=== PATIENT | male | born 1965 | race Caucasian/White ===

== ENCOUNTER 2017-08-23 08:10 | Inpatient (IN) | payer MEDICAID ==
[~2017-08-23] VITALS: Ht 162.6 cm; Wt 74.8 kg
[2017-08-23] MEDS ORDERED: SODIUM CHLORIDE 0.9% 1000ML BAG (SEPSIS BOLUS) IV ONE (10:30)
[2017-08-23 11:00] LABS: HEMATOCRIT. 29.2 % (42.0-52.0); MEAN CORPUSCULAR HEMOGLOBIN 21.8 pg (28.0-32.0); MEAN PLATELET VOLUME 8.6 fl (7.4-10.4); PLATELET 161 x1000/uL (130-400); RED BLOOD CELL COUNT 4.11 mill/uL (4.7-6.1); RED CELL DISTRIBUTION WIDTH 20.5 % (11.6-14.6)
[2017-08-23 11:08] LABS: CHLORIDE 89 mEq/L (98-107)
[2017-08-23] MEDS ORDERED: VANCOMYCIN 1 G PREMIX 200 ML IV SCH (11:30)
[2017-08-23 11:32] LABS: PLATELET ESTIMATE NORMAL
[2017-08-23] MEDS ORDERED: HYDROCODONE/ACETAMINOPHEN 5/325MG TABLET PO PRN (14:00)
[2017-08-23] MEDS ORDERED: CLONIDINE 0.1MG TABLET PO PRN (14:00)
[2017-08-23] MEDS ORDERED: ONDANSETRON HCL 4MG/2ML VIAL IV PRN (14:00)
[2017-08-23] MEDS ORDERED: CEFTRIAXONE 1 G PREMIX 50 ML IV SCH ×2 (14:00→20:00)
[2017-08-23] MEDS ORDERED: MORPHINE SULFATE 4 MG/ML CPJ (NOT FOR IM USE) IV PRN (14:00)
[2017-08-23] MEDS ORDERED: ACETAMINOPHEN 650MG/20.3ML UDC GT PRN (14:00)
[2017-08-23] MEDS ORDERED: MAGNESIUM/ALUMINUM HYDROXIDE/SIMETHICONE 30ML UDC PO PRN (14:00)
[2017-08-23] MEDS ORDERED: NA PHOS,M-B/NA PHOS,DI-BA ENEMA 118ML PR PRN (14:00)
[2017-08-23] MEDS ORDERED: DOCUSATE SODIUM 100MG CAPSULE PO PRN (14:00)
[2017-08-23] MEDS ORDERED: DIPHENHYDRAMINE 50MG/ML VIAL IV PRN (14:00)
[2017-08-23] MEDS ORDERED: ACETAMINOPHEN 650MG SUPP PR PRN (14:00)
[2017-08-23] MEDS ORDERED: IPRATROPIUM/ALBUTEROL 0.5-3(2.5)MG/3ML NEB INH PRN (14:00)
[2017-08-23 14:55] LABS: TOTAL IRON BINDING CAPACITY 329 ug/dL (250-450)
[2017-08-23 19:54] LABS: CLARITY URINE CLOUDY (CLEAR); COLOR URINE YELLOW (YELLOW); KETONES URINE 1+ (NEGATIVE); LEUKOCYTE ESTERASE URINE NEGATIVE (NEGATIVE); NITRITE URINE NEGATIVE (NEGATIVE); OCCULT BLOOD URINE 3+ (NEGATIVE); PROTEIN URINE 2+ (NEGATIVE); SPECIFIC GRAVITY URINE 1.019 (1.005-1.030); UROBILINOGEN URINE 0.2 E.U./dL (0.2-1.0)
[2017-08-23 20:00] VITALS: BP 141/61
[2017-08-23 20:44] LABS: *AMPHETAMINES SCREEN URINE NEGATIVE (NEGATIVE); *BARBITURATES SCREEN URINE NEGATIVE (NEGATIVE); *BENZODIAZEPINES SCREEN URINE NEGATIVE (NEGATIVE); *COCAINE SCREEN URINE NEGATIVE (NEGATIVE); METHADONE URINE SCREEN NEGATIVE (NEGATIVE)
[2017-08-23 20:45] LABS: CANNABINOID URINE SCREEN NEGATIVE (NEGATIVE); OPIATES URINE SCREEN NEGATIVE (NEGATIVE); PHENCYCLIDINE URINE SCREEN NEGATIVE (NEGATIVE)
[2017-08-24] VITALS: BP 127/80
[2017-08-24] MEDS: VANCOMYCIN 1 G PREMIX 200 ML IV SCH ×2 (00:31→18:48)
[2017-08-24] MEDS: DEXAMETHASONE 4MG/ML 1ML VIAL IV SCH ×2 (00:31→06:57)
[2017-08-24] MEDS: SODIUM CHLORIDE 0.9% 1,000 ML IV SCH ×2 (00:31→08:35)
[2017-08-24] MEDS: SODIUM CHLORIDE 0.9% INJ 3ML FLUSH IVF SCH ×3 (00:32→14:00)
[2017-08-24] MEDS: NEOMYCIN-POLYMYXIN-HYDROCORTISONE 1% OTIC SUSP 10ML RIGHT EAR SCH ×3 (00:32→18:48)
[2017-08-24] MEDS: ENOXAPARIN 40MG/0.4ML SYR SUBCUT SCH (00:33)
[2017-08-24 04:00] VITALS: BP 105/69
[2017-08-24] MEDS ORDERED: THIAMINE HCL 100MG TABLET PO NR (07:45)
[2017-08-24 07:48] LABS: HEMATOCRIT. 29.5 % (42.0-52.0); MEAN CORPUSCULAR HEMOGLOBIN 22.1 pg (28.0-32.0); MEAN CORPUSCULAR VOLUME 72.7 fL (80.0-94.0); MEAN PLATELET VOLUME 8.4 fl (7.4-10.4); PLATELET 183 x1000/uL (130-400); RED BLOOD CELL COUNT 4.06 mill/uL (4.7-6.1); RED CELL DISTRIBUTION WIDTH 20.9 % (11.6-14.6)
[2017-08-24 07:49] LABS: CHLORIDE 94 mEq/L (98-107)
[2017-08-24 08:00] VITALS: BP 129/61
[2017-08-24] MEDS ORDERED: LORAZEPAM 2MG/ML CPJ IV PRN (08:00)
[2017-08-24 08:12] LABS: LDL CHOLESTEROL 46 mg/dL (5-100)
[2017-08-24 08:14] LABS: HDL CHOLESTEROL 57 mg/dL (40-59)
[2017-08-24 08:38] LABS: BG BASE EXCESS -12.4 mmol/L (-2.0-2.0); BG DEOXYHEMOGLOBIN 2.4 % (0.0-5.0); BG METHEMOGLOBIN 0.3 % (0.0-1.5); BG OXYGEN SATURATION 97.6 % (92.0-98.5); BG OXYHEMOGLOBIN 97.3 % (94.0-97.0); BG PH 7.334 (7.350-7.450); BG PO2 102.4 mmHg (75.0-100.0); BG SAMPLE SITE RIGHT RADIAL; BG TOTAL HEMOGLOBIN 9.2 g/dL (12.0-18.0); BG VENT MODE ROOM AIR
[2017-08-24] MEDS: FOLIC ACID 1MG TABLET PO SCH (08:41)
[2017-08-24] MEDS ORDERED: POTASSIUM CHLORIDE 20MEQ TABLET SR PO NR ×2 (09:15→13:00)
[2017-08-24 10:38] LABS: PHOSPHORUS 2.4 mg/dL (2.5-4.9)
[2017-08-24 10:42] LABS: BETA HYDROXYBUTYRATE 2.5 mMol/L (0.0-0.3)
[2017-08-24] MEDS ORDERED: THIAMINE HCL 100 MG in SODIUM CHLORIDE 0.9% 49 ML IV NR (11:00)
[2017-08-24] MEDS: POTASSIUM CHLORIDE INJ 40 MEQ in SODIUM CHLORIDE 0.9% 1,000 ML IV SCH (11:00)
[2017-08-24 12:00] VITALS: BP 128/57
[2017-08-24 16:00] VITALS: BP 111/57
[2017-08-24] MEDS ORDERED: POTASSIUM PHOS,M-BASIC-D-BASIC 15 MMOL in SODIUM CHLORIDE 0.9% 250 ML IV SCH (16:00)
[2017-08-24 16:08] LABS: T4 FREE 1.28 ng/dL (0.76-1.46)
[2017-08-24 17:05] LABS: PLATELET ESTIMATE NORMAL
[2017-08-24] MEDS: LORAZEPAM 2MG/ML CPJ IV PRN (17:38)
[2017-08-24] MEDS ORDERED: PIPERACILLIN/TAZOBACTAM 3.375 G in DEXT 5% WATER 100 ML IV SCH (18:00)
[2017-08-24 20:00] VITALS: BP 100/57
[2017-08-25] VITALS: BP_SYST 103; BP_SYST 110; BP_DIAS 48; BP_DIAS 61
[2017-08-25] MEDS: NEOMYCIN-POLYMYXIN-HYDROCORTISONE 1% OTIC SUSP 10ML RIGHT EAR SCH ×4 (00:20→21:58)
[2017-08-25] MEDS: SODIUM CHLORIDE 0.9% INJ 3ML FLUSH IVF SCH ×4 (00:21→22:07)
[2017-08-25] MEDS: ENOXAPARIN 40MG/0.4ML SYR SUBCUT SCH ×2 (00:21→21:59)
[2017-08-25] MEDS: POTASSIUM CHLORIDE INJ 40 MEQ in SODIUM CHLORIDE 0.9% 1,000 ML IV SCH ×2 (00:21→22:07)
[2017-08-25] MEDS: PIPERACILLIN/TAZ 3.375G PREMIX 50 ML IV SCH ×5 (00:21→21:58)
[2017-08-25] MEDS ORDERED: POTASSIUM PHOS,M-BASIC-D-BASIC 15 MMOL in SODIUM CHLORIDE 0.9% 250 ML IV SCH (05:00)
[2017-08-25] MEDS: VANCOMYCIN 1 G PREMIX 200 ML IV SCH (09:01)
[2017-08-25 09:29] LABS: HEMATOCRIT. 25.5 % (42.0-52.0); HEMOGLOBIN. 7.9 g/dL (14.0-18.0); MEAN CORPUSCULAR HEMOGLOBIN 22.1 pg (28.0-32.0); MEAN CORPUSCULAR VOLUME 71.5 fL (80.0-94.0); PLATELET 243 x1000/uL (130-400); RED BLOOD CELL COUNT 3.57 mill/uL (4.7-6.1); RED CELL DISTRIBUTION WIDTH 20.9 % (11.6-14.6)
[2017-08-25 09:51] LABS: CHLORIDE 104 mEq/L (98-107)
[2017-08-25 10:00] LABS: PHOSPHORUS 3.6 mg/dL (2.5-4.9)
[2017-08-25 10:39] LABS: NUCLEATED RED BLOOD CELLS 2 /100 WBC
[2017-08-25 10:40] LABS: PLATELET ESTIMATE NORMAL
[2017-08-25 12:32] VITALS: BP 127/73
[2017-08-25] MEDS: FOLIC ACID 1MG TABLET PO SCH (14:06)
[2017-08-25] MEDS: POTASSIUM CHLORIDE 20MEQ TABLET SR PO SCH (14:07)
[2017-08-25] MEDS: THIAMINE HCL 100MG TABLET PO SCH (14:08)
[2017-08-25] MEDS: LORAZEPAM 2MG/ML CPJ IV PRN ×2 (14:14→21:58)
[2017-08-25] MEDS ORDERED: COSYNTROPIN 0.25MG/ML VIAL IV ONE (14:45)
[2017-08-25] MEDS ORDERED: POTASSIUM CHLORIDE 20MEQ/PACKET PO NR (15:00)
[2017-08-25 16:00] VITALS: BP 131/62
[2017-08-25 16:27] LABS: HEMATOCRIT. 25.5 % (42.0-52.0); HEMOGLOBIN. 7.8 g/dL (14.0-18.0); MEAN CORPUSCULAR HEMOGLOBIN 22.2 pg (28.0-32.0); MEAN CORPUSCULAR VOLUME 72.7 fL (80.0-94.0); MEAN PLATELET VOLUME 8.2 fl (7.4-10.4); PLATELET 261 x1000/uL (130-400); RED BLOOD CELL COUNT 3.51 mill/uL (4.7-6.1); RED CELL DISTRIBUTION WIDTH 20.8 % (11.6-14.6)
[2017-08-25] MEDS ORDERED: FAMOTIDINE 20MG TABLET PO SCH (17:00)
[2017-08-25 17:18] LABS: TOTAL IRON BINDING CAPACITY 224 ug/dL (250-450)
[2017-08-25 20:00] VITALS: BP 145/62
[2017-08-25 21:48] LABS: PLATELET ESTIMATE NORMAL
[2017-08-26] VITALS: BP 126/62
[2017-08-26] MEDS: NEOMYCIN-POLYMYXIN-HYDROCORTISONE 1% OTIC SUSP 10ML RIGHT EAR SCH ×4 (01:50→18:08)
[2017-08-26] MEDS: PIPERACILLIN/TAZ 3.375G PREMIX 50 ML IV SCH ×4 (01:51→21:15)
[2017-08-26 04:00] VITALS: BP 137/69
[2017-08-26] MEDS ORDERED: COSYNTROPIN 0.25MG/ML VIAL IV NR (05:15)
[2017-08-26] MEDS: LORAZEPAM 2MG/ML CPJ IV PRN ×2 (05:33→14:09)
[2017-08-26] MEDS: VANCOMYCIN 1 G PREMIX 200 ML IV SCH ×2 (05:36→21:15)
[2017-08-26 06:42] LABS: HEMATOCRIT. 24.9 % (42.0-52.0); HEMOGLOBIN. 7.6 g/dL (14.0-18.0); MEAN CORPUSCULAR HEMOGLOBIN 22.5 pg (28.0-32.0); MEAN CORPUSCULAR VOLUME 73.6 fL (80.0-94.0); MEAN PLATELET VOLUME 8.1 fl (7.4-10.4); PLATELET 303 x1000/uL (130-400); RED BLOOD CELL COUNT 3.39 mill/uL (4.7-6.1); RED CELL DISTRIBUTION WIDTH 20.3 % (11.6-14.6)
[2017-08-26] MEDS: SODIUM CHLORIDE 0.9% INJ 3ML FLUSH IVF SCH ×2 (06:49→13:26)
[2017-08-26 06:53] LABS: CHLORIDE 107 mEq/L (98-107)
[2017-08-26 07:17] LABS: PHOSPHORUS 0.9 mg/dL (2.5-4.9)
[2017-08-26 08:00] VITALS: BP 110/59
[2017-08-26] MEDS ORDERED: DEXT 5% IV NR (08:00)
[2017-08-26] MEDS ORDERED: WATER IV NR (08:00)
[2017-08-26] MEDS ORDERED: COSYNTROPIN IV NR (08:00)
[2017-08-26] MEDS: THIAMINE HCL 100MG TABLET PO SCH (09:03)
[2017-08-26] MEDS: FOLIC ACID 1MG TABLET PO SCH (09:03)
[2017-08-26] MEDS ORDERED: SODIUM PHOS,M-BASIC-D-BASIC 20 MM in DEXT 5% WATER 243.3333 ML IV NR (09:30)
[2017-08-26 12:00] VITALS: BP 128/72
[2017-08-26 14:03] LABS: PLATELET ESTIMATE NORMAL
[2017-08-26 16:00] VITALS: BP 148/78
[2017-08-26 20:00] VITALS: BP 143/67
[2017-08-26] MEDS: FAMOTIDINE 20MG TABLET PO SCH (21:14)
[2017-08-26] MEDS: POTASSIUM CHLORIDE INJ 40 MEQ in SODIUM CHLORIDE 0.9% 1,000 ML IV SCH (21:15)
[2017-08-26] MEDS: ENOXAPARIN 40MG/0.4ML SYR SUBCUT SCH (21:15)
[2017-08-27] VITALS: BP 147/58
[2017-08-27] MEDS: NEOMYCIN-POLYMYXIN-HYDROCORTISONE 1% OTIC SUSP 10ML RIGHT EAR SCH ×3 (05:55→17:54)
[2017-08-27] MEDS: PIPERACILLIN/TAZ 3.375G PREMIX 50 ML IV SCH ×2 (06:00→12:00)
[2017-08-27] MEDS: SODIUM CHLORIDE 0.9% INJ 3ML FLUSH IVF SCH ×2 (06:00→14:00)
[2017-08-27 06:51] LABS: HEMATOCRIT. 24.2 % (42.0-52.0); HEMOGLOBIN. 7.4 g/dL (14.0-18.0); MEAN CORPUSCULAR HEMOGLOBIN 22.4 pg (28.0-32.0); MEAN CORPUSCULAR VOLUME 72.8 fL (80.0-94.0); MEAN PLATELET VOLUME 7.8 fl (7.4-10.4); PLATELET 365 x1000/uL (130-400); RED BLOOD CELL COUNT 3.32 mill/uL (4.7-6.1); RED CELL DISTRIBUTION WIDTH 20.8 % (11.6-14.6)
[2017-08-27 07:43] LABS: PHOSPHORUS 2.7 mg/dL (2.5-4.9)
[2017-08-27 08:00] VITALS: BP 128/58
[2017-08-27] MEDS: THIAMINE HCL 100MG TABLET PO SCH ×2 (08:58→09:42)
[2017-08-27] MEDS: FOLIC ACID 1MG TABLET PO SCH ×2 (08:58→09:42)
[2017-08-27] MEDS: MAGNESIUM OXIDE 400MG TABLET PO SCH ×2 (09:42→16:11)
[2017-08-27 12:00] VITALS: BP 131/59
[2017-08-27 13:14] LABS: PLATELET ESTIMATE NORMAL
[2017-08-27] MEDS ORDERED: LEVOFLOXACIN 500MG TABLET PO NR (15:00)
[2017-08-27 16:00] VITALS: BP 145/68
[2017-08-27] MEDS: SULFAMETHOXAZOLE/TRIMETHOPRIM 800/160MG TABLET PO SCH (16:09)
[2017-08-27] MEDS: FAMOTIDINE 20MG TABLET PO SCH (20:54)
[2017-08-27] MEDS: ENOXAPARIN 40MG/0.4ML SYR SUBCUT SCH (20:55)
[2017-08-28] MEDS: NEOMYCIN-POLYMYXIN-HYDROCORTISONE 1% OTIC SUSP 10ML RIGHT EAR SCH ×4 (00:16→17:10)
[2017-08-28 00:25] VITALS: BP 131/68
[2017-08-28 04:00] VITALS: BP 118/74
[2017-08-28 08:00] VITALS: BP 103/61
[2017-08-28] MEDS: POTASSIUM CHLORIDE 20MEQ TABLET SR PO SCH (08:47)
[2017-08-28] MEDS: FOLIC ACID 1MG TABLET PO SCH (08:47)
[2017-08-28] MEDS: THIAMINE HCL 100MG TABLET PO SCH (08:47)
[2017-08-28] MEDS: SULFAMETHOXAZOLE/TRIMETHOPRIM 800/160MG TABLET PO SCH (08:48)
[2017-08-28] MEDS: MAGNESIUM OXIDE 400MG TABLET PO SCH ×2 (08:48→17:10)
[2017-08-28] MEDS: SODIUM CHLORIDE 0.9% INJ 3ML FLUSH IVF SCH ×3 (08:48→20:08)
[2017-08-28 09:20] LABS: HEMATOCRIT. 22.4 % (42.0-52.0); HEMOGLOBIN. 7.1 g/dL (14.0-18.0); MEAN CORPUSCULAR HEMOGLOBIN 22.8 pg (28.0-32.0); MEAN PLATELET VOLUME 7.8 fl (7.4-10.4); PHOSPHORUS 2.8 mg/dL (2.5-4.9); PLATELET 407 x1000/uL (130-400); RED BLOOD CELL COUNT 3.11 mill/uL (4.7-6.1); RED CELL DISTRIBUTION WIDTH 19.8 % (11.6-14.6)
[2017-08-28] MEDS: LEVOFLOXACIN 250MG TABLET PO SCH (10:02)
[2017-08-28 11:45] LABS: ATYPICAL LYMPHOCYTES 2
[2017-08-28 11:47] LABS: PLATELET ESTIMATE SLIGHTLY INCREASED
[2017-08-28 12:00] VITALS: BP 123/64
[2017-08-28 14:28] LABS: TOTAL IRON BINDING CAPACITY 253 ug/dL (250-450)
[2017-08-28 16:00] VITALS: BP 134/64
[2017-08-28] MEDS: LORAZEPAM 2MG/ML CPJ IV PRN (19:56)
[2017-08-28] MEDS: ENOXAPARIN 40MG/0.4ML SYR SUBCUT SCH (19:56)
[2017-08-28 20:00] VITALS: BP 134/67
[2017-08-28] MEDS: FAMOTIDINE 20MG TABLET PO SCH (20:08)
[2017-08-29] VITALS: BP 139/77
[2017-08-29 04:00] VITALS: BP 135/64
[2017-08-29] MEDS: SODIUM CHLORIDE 0.9% INJ 3ML FLUSH IVF SCH ×2 (05:32→13:06)
[2017-08-29] MEDS: NEOMYCIN-POLYMYXIN-HYDROCORTISONE 1% OTIC SUSP 10ML RIGHT EAR SCH ×3 (05:37→11:51)
[2017-08-29 08:00] VITALS: BP 148/72
[2017-08-29] MEDS: FERROUS SULFATE 325MG TABLET PO SCH ×2 (08:20→13:14)
[2017-08-29] MEDS: MAGNESIUM OXIDE 400MG TABLET PO SCH (08:20)
[2017-08-29] MEDS: POTASSIUM CHLORIDE 20MEQ TABLET SR PO SCH (08:20)
[2017-08-29] MEDS: THIAMINE HCL 100MG TABLET PO SCH (08:20)
[2017-08-29] MEDS: FOLIC ACID 1MG TABLET PO SCH (08:20)
[2017-08-29] MEDS: SULFAMETHOXAZOLE/TRIMETHOPRIM 800/160MG TABLET PO SCH (08:21)
[2017-08-29 08:29] LABS: HEMATOCRIT. 24.4 % (42.0-52.0); HEMOGLOBIN. 7.5 g/dL (14.0-18.0); MEAN CORPUSCULAR HEMOGLOBIN 22.7 pg (28.0-32.0); MEAN CORPUSCULAR VOLUME 73.4 fL (80.0-94.0); PLATELET 460 x1000/uL (130-400); RED BLOOD CELL COUNT 3.32 mill/uL (4.7-6.1); RED CELL DISTRIBUTION WIDTH 20.4 % (11.6-14.6)
[2017-08-29 09:22] LABS: PHOSPHORUS 2.8 mg/dL (2.5-4.9)
[2017-08-29] MEDS ORDERED: CEPH-569 MT (09:30)
[2017-08-29] MEDS ORDERED: FERR236T3 MT (09:31)
[2017-08-29] MEDS: LEVOFLOXACIN 250MG TABLET PO SCH (11:51)
[2017-08-29 12:00] VITALS: BP 121/60
[2017-08-29 15:39] VITALS: BP 121/60
[2017-08-29] MEDS ORDERED: SODIUM BICARBONATE 650 MG TABLET PO SCH (17:00)
[2017-08-30 06:53] LABS: PLATELET ESTIMATE INCREASED
== END 2017-08-29 17:05 | disposition home or self-care (01) | DRG 720 ==
LOC: ER 08:10 → EDBEDREQSVC 13:09 → EDBEDREQ 13:09 → EDBEDREQTM 13:09 → EDBEDREQ 14:52 → EDBEDREQTM 14:52 → 6EST 14:59 → EDBEDREQ 15:03 → EDBEDREQSVC 15:03 → EDBEDREQTM 15:03 → ENRESERV 15:23 → 6EST 23:46
PROVIDERS: ADMIT Family Medicine; ATTEND Family Medicine
DX: A41.9 Sepsis, unspecified organism (principal); N17.0 Acute kidney failure with tubular necrosis; E43 Unspecified severe protein-calorie malnutrition; G93.40 Encephalopathy, unspecified; K85.90 Acute pancreatitis without necrosis or infection, unspecified; E87.2 Acidosis; N18.3 Chronic kidney disease, stage 3 (moderate); L03.211 Cellulitis of face; E86.0 Dehydration; E87.1 Hypo-osmolality and hyponatremia; E87.6 Hypokalemia; R73.9 Hyperglycemia, unspecified; D63.8 Anemia in other chronic diseases classified elsewhere; S00.01XA Abrasion of scalp, initial encounter; I51.7 Cardiomegaly; H93.8X9 Other specified disorders of ear, unspecified ear; F10.20 Alcohol dependence, uncomplicated; E83.39 Other disorders of phosphorus metabolism; D50.9 Iron deficiency anemia, unspecified; Z91.19 Patient's noncompliance with other medical treatment and regimen; Z59.0 Homelessness; Z68.28 Body mass index [BMI] 28.0-28.9, adult; X58.XXXA Exposure to other specified factors, initial encounter; Y93.89 Activity, other specified; Y92.89 Other specified places as the place of occurrence of the external cause; Y99.8 Other external cause status
CPT/HCPCS: 36415; 36600; 70450; 70486; 71045; 72170; 76770; 80048; 80053; 80061; 80202; 80305; 81003; 82010; 82270; 82375; 82533; 82728; 82805; 83036; 83540; 83550; 83605; 83690; 83735; 83930; 83935; 84100; 84439; 84443; 85025; 85610; 87040; 87086; 93005; 96365; 96366; 97116; 97162; 97165; 97530; 99285; C1893; G0482; J0696; J0834; J1100; J1200; J1650; J2060; J2270; J2543; J3370; J3411; J3480; J3490; J7030; J7040; J7060

== ENCOUNTER 2018-07-08 15:04 | Emergency (ER) | payer MEDICAID ==
[~2018-07-08] VITALS: Ht 170.2 cm; Wt 65.0 kg
[~2018-07-08 15:04] MED LIST: CEPH-569 MT; FERR236T3 MT
[2018-07-08 16:54] LABS: CHLORIDE 111 mEq/L (98-107)
[2018-07-08 17:22] LABS: ETHANOL BLOOD 510 mg/dL
[2018-07-08] MEDS ORDERED: SODIUM CHLORIDE 0.9% 1,000 ML IV ONE (17:39)
[2018-07-08 17:57] LABS: BASOPHILS % 2.6 % (0.0-2.0); EOSINOPHILS % 1.8 % (0.0-5.0); HEMATOCRIT. 30.2 % (42.0-52.0); HEMOGLOBIN. 9.8 g/dL (14.0-18.0); LYMPHOCYTES % 61.1 % (20.0-50.0); MEAN CORPUSCULAR HEMOGLOBIN 27.5 pg (28.0-32.0); MEAN CORPUSCULAR VOLUME 84.8 fL (80.0-94.0); MEAN PLATELET VOLUME 8.6 fl (7.4-10.4); MONOCYTES % 10.5 % (2.0-8.0); PLATELET 71 x1000/uL (130-400); RED BLOOD CELL COUNT 3.56 mill/uL (4.7-6.1); RED CELL DISTRIBUTION WIDTH 26.9 % (11.6-14.6)
[2018-07-08 18:12] LABS: PLATELET ESTIMATE DECREASED
[2018-07-09] MEDS ORDERED: ONDANSETRON HCL 4MG/2ML INJ IV ONE (05:00)
[2018-07-09] MEDS ORDERED: SODIUM CHLORIDE 0.9% 1,000 ML IV ONE (05:00)
[2018-07-09 08:35] VITALS: BP 135/61
== END 2018-07-09 09:07 | disposition home or self-care (01) ==
LOC: ER 15:44
DX: F10.229 Alcohol dependence with intoxication, unspecified (principal); S00.511A Abrasion of lip, initial encounter; Y90.8 Blood alcohol level of 240 mg/100 ml or more; X58.XXXA Exposure to other specified factors, initial encounter; Y93.89 Activity, other specified; Y92.488 Other paved roadways as the place of occurrence of the external cause
CPT/HCPCS: 36415; 70450; 80053; 80307; 80320; 80329; 85025; 96374; 99284; J2405; J7030; G0480

== ENCOUNTER 2018-07-18 11:38 | Emergency (ER) | payer MEDICAID ==
[~2018-07-18] VITALS: Ht 172.7 cm; Wt 80.0 kg
[2018-07-18] MEDS ORDERED: ONDANSETRON HCL 4MG/2ML INJ IV STA (11:47)
[2018-07-18] MEDS ORDERED: SODIUM CHLORIDE 0.9% 1,000 ML IV ONE (11:47)
[2018-07-18] MEDS ORDERED: MORPHINE SULFATE 4 MG/ML CPJ (NOT FOR IM USE) IV STA (11:47)
[2018-07-18] MEDS ORDERED: TETANUS, DIPHTHERIA, PERTUSSIS VAC/PF 0.5ML (>7YR OLD) IM ONE (12:00)
[2018-07-18] MEDS ORDERED: CEFAZOLIN 1000MG PREMIX 50 ML IV ONE (12:00)
[2018-07-18 12:01] LABS: BASOPHILS % 3.1 % (0.0-2.0); EOSINOPHILS % 1.5 % (0.0-5.0); HEMATOCRIT. 28.4 % (42.0-52.0); HEMOGLOBIN. 9.3 g/dL (14.0-18.0); LYMPHOCYTES % 34.2 % (20.0-50.0); MEAN CORPUSCULAR HEMOGLOBIN 28.6 pg (28.0-32.0); MEAN CORPUSCULAR VOLUME 87.8 fL (80.0-94.0); MEAN PLATELET VOLUME 8.5 fl (7.4-10.4); MONOCYTES % 13.9 % (2.0-8.0); NEUTROPHILS % 47.3 % (40.0-76.0); PLATELET 61 x1000/uL (130-400); RED BLOOD CELL COUNT 3.24 mill/uL (4.7-6.1); RED CELL DISTRIBUTION WIDTH 23.7 % (11.6-14.6)
[2018-07-18 12:04] LABS: CHLORIDE 106 mEq/L (98-107)
[2018-07-18 12:17] LABS: PARTIAL THROMBOPLASTIN TIME 26.1 sec (23.4-31.0); PROTHROMBIN TIME 10.7 sec (9.6-11.0)
[2018-07-18 12:46] LABS: PLATELET ESTIMATE DECREASED
[2018-07-18 15:12] VITALS: BP 137/80
== END 2018-07-18 15:21 | disposition short-term general hospital (02) ==
LOC: ER 11:38
DX: S02.31XA Fracture of orbital floor, right side, initial encounter for closed fracture (principal); S00.81XA Abrasion of other part of head, initial encounter; S01.512A Laceration without foreign body of oral cavity, initial encounter; S00.511A Abrasion of lip, initial encounter; Y93.89 Activity, other specified; X99.8XXA Assault by other sharp object, initial encounter; Y92.89 Other specified places as the place of occurrence of the external cause
CPT/HCPCS: 36415; 70450; 70486; 71045; 72125; 80053; 85025; 85610; 85730; 86850; 86900; 86901; 90471; 90715; 93005; 96365; 96375; 99285; J0690; J2270; J2405; J7030; Z7610; A4315

== ENCOUNTER 2018-07-25 10:50 | Emergency (ER) | payer MEDICAID ==
[~2018-07-25] VITALS: Ht 170.2 cm; Wt 82.0 kg
[2018-07-25] MEDS ORDERED: SODIUM CHLORIDE 0.9% 1,000 ML IV ONE (11:13)
[2018-07-25 11:36] LABS: HEMATOCRIT. 24.1 % (42.0-52.0); HEMOGLOBIN. 8.1 g/dL (14.0-18.0); MEAN CORPUSCULAR HEMOGLOBIN 29.8 pg (28.0-32.0); MEAN CORPUSCULAR VOLUME 89.2 fL (80.0-94.0); MEAN PLATELET VOLUME 7.5 fl (7.4-10.4); PLATELET 113 x1000/uL (130-400); RED CELL DISTRIBUTION WIDTH 20.4 % (11.6-14.6)
[2018-07-25 11:40] LABS: CHLORIDE 108 mEq/L (98-107)
[2018-07-25 11:43] LABS: PARTIAL THROMBOPLASTIN TIME 23.8 sec (23.4-31.0); PROTHROMBIN TIME 10.2 sec (9.6-11.0)
[2018-07-25 11:55] LABS: ETHANOL BLOOD 419 mg/dL
[2018-07-25 12:08] LABS: NUCLEATED RED BLOOD CELLS 1 /100 WBC; PLATELET ESTIMATE SLIGHTLY DECREASED
[2018-07-25] MEDS ORDERED: IOHEXOL-300 100 ML BOTTLE ONE (14:09)
[2018-07-25 18:07] VITALS: BP 131/68
== END 2018-07-25 18:18 | disposition home or self-care (01) ==
LOC: ER 10:50
DX: S02.82XA Fracture of other specified skull and facial bones, left side, initial encounter for closed fracture (principal); S02.81XA Fracture of other specified skull and facial bones, right side, initial encounter for closed fracture; S39.81XA Other specified injuries of abdomen, initial encounter; S29.8XXA Other specified injuries of thorax, initial encounter; Y00.XXXA Assault by blunt object, initial encounter; Y04.2XXA Assault by strike against or bumped into by another person, initial encounter; T51.0X1A Toxic effect of ethanol, accidental (unintentional), initial encounter; F10.229 Alcohol dependence with intoxication, unspecified; Y90.8 Blood alcohol level of 240 mg/100 ml or more; D61.818 Other pancytopenia; Y93.89 Activity, other specified; Y92.89 Other specified places as the place of occurrence of the external cause
CPT/HCPCS: 36415; 70450; 70486; 71045; 71260; 72125; 74177; 80053; 80320; 84484; 85025; 85610; 85730; 86850; 86900; 86901; 93005; 99284; J7030; Q9967; Z7610; G0480

== ENCOUNTER 2018-07-28 14:35 | Emergency (ER) | payer MEDICAID ==
[~2018-07-28] VITALS: Ht 165.1 cm; Wt 68.0 kg
[2018-07-28] MEDS ORDERED: FOLIC ACID 1 MG, THIAMINE HCL 100 MG, MVI, ADULT NO.1 10 ML in DEXTROSE 5% WATER 1,000 ML IV ONE ×4 (15:15)
[2018-07-28] MEDS ORDERED: ONDANSETRON HCL 4MG/2ML INJ IV ONE (15:15)
[2018-07-28 19:15] VITALS: BP 117/59
== END 2018-07-28 19:41 | disposition home or self-care (01) ==
LOC: ER 14:35
DX: T51.8X1A Toxic effect of other alcohols, accidental (unintentional), initial encounter (principal); S00.83XA Contusion of other part of head, initial encounter; F10.129 Alcohol abuse with intoxication, unspecified; G92 Toxic encephalopathy; I10 Essential (primary) hypertension; Z79.899 Other long term (current) drug therapy; Y08.89XA Assault by other specified means, initial encounter; Y93.89 Activity, other specified; Y92.89 Other specified places as the place of occurrence of the external cause; Y99.8 Other external cause status; Z65.4 Victim of crime and terrorism
CPT/HCPCS: 70450; 70486; 96365; 96375; 99284; J2405; J3411; J3490; J7070; Z7610; 96366

== ENCOUNTER 2018-10-03 13:46 | Inpatient (IN) | payer MEDICAID ==
[~2018-10-03] VITALS: Ht 170.2 cm; Wt 71.9 kg
[2018-10-03] MEDS ORDERED: KETOROLAC 30MG/ML VIAL IV STA (14:38)
[2018-10-03] MEDS ORDERED: SODIUM CHLORIDE 0.9% 1,000 ML IV ONE (14:38)
[2018-10-03 14:56] LABS: HEMATOCRIT. 22.3 % (42.0-52.0); MEAN CORPUSCULAR HEMOGLOBIN 22.2 pg (28.0-32.0); MEAN PLATELET VOLUME 7.6 fl (7.4-10.4); PLATELET 125 x1000/uL (130-400); RED BLOOD CELL COUNT 3.06 mill/uL (4.7-6.1); RED CELL DISTRIBUTION WIDTH 22.3 % (11.6-14.6)
[2018-10-03 14:59] LABS: CHLORIDE 106 mEq/L (98-107); HEMOGLOBIN. 6.8 g/dL (14.0-18.0)
[2018-10-03 15:09] LABS: *BENZODIAZEPINES SCREEN URINE NEGATIVE (NEGATIVE); *COCAINE SCREEN URINE NEGATIVE (NEGATIVE); METHADONE URINE SCREEN NEGATIVE (NEGATIVE); OPIATES URINE SCREEN NEGATIVE (NEGATIVE); PHENCYCLIDINE URINE SCREEN NEGATIVE (NEGATIVE)
[2018-10-03 15:11] LABS: *AMPHETAMINES SCREEN URINE PRESUMTIVE POSITIVE (NEGATIVE); *BARBITURATES SCREEN URINE NEGATIVE (NEGATIVE); CANNABINOID URINE SCREEN NEGATIVE (NEGATIVE)
[2018-10-03 15:20] LABS: ETHANOL BLOOD 370 mg/dL
[2018-10-03 15:34] LABS: PARTIAL THROMBOPLASTIN TIME 27.5 sec (23.4-31.0); PROTHROMBIN TIME 10.3 sec (9.6-11.0)
[2018-10-03 15:36] LABS: PLATELET ESTIMATE DECREASED
[2018-10-03] MEDS ORDERED: IPRATROPIUM/ALBUTEROL 0.5-3(2.5)MG/3ML NEB INH PRN (19:15)
[2018-10-03] MEDS ORDERED: ACETAMINOPHEN 325MG TABLET PO PRN (19:15)
[2018-10-03] MEDS ORDERED: DIPHENHYDRAMINE 50MG/ML VIAL IV PRN (19:15)
[2018-10-03] MEDS ORDERED: ONDANSETRON HCL 4MG/2ML INJ IV PRN (19:15)
[2018-10-03] MEDS ORDERED: GUAIFENESIN 200MG/10ML SUGAR FREE UDC PO PRN (19:15)
[2018-10-03] MEDS ORDERED: DOCUSATE SODIUM 100MG CAPSULE PO PRN (19:15)
[2018-10-03] MEDS ORDERED: MAGNESIUM/ALUMINUM HYDROXIDE/SIMETHICONE 30ML UDC PO PRN (19:15)
[2018-10-03] MEDS ORDERED: LORAZEPAM 2MG/ML CPJ IV PRN ×2 (19:15)
[2018-10-03] MEDS ORDERED: HYDRALAZINE 20MG/ML VIAL IV PRN (19:15)
[2018-10-03] MEDS ORDERED: CLONIDINE 0.1MG TABLET PO PRN (19:15)
[2018-10-03] MEDS ORDERED: HYDROCODONE/ACETAMINOPHEN 10/325MG TABLET PO PRN (19:35)
[2018-10-03] MEDS ORDERED: MORPHINE SULFATE 2 MG/ML CPJ (NOT FOR IM USE) IV PRN (19:36)
[2018-10-03 20:00] VITALS: BP 139/63
[2018-10-03] MEDS ORDERED: NA PHOS,M-B/NA PHOS,DI-BA ENEMA 118ML PR PRN (21:00)
[2018-10-03] MEDS: SODIUM CHLORIDE 0.9% INJ 3ML FLUSH IVF SCH (22:38)
[2018-10-03] MEDS ORDERED: MVI, ADULT NO.1 10 ML, FOLIC ACID 1 MG, THIAMINE HCL 100 MG in SODIUM CHLORIDE 0.9% 1,0... IV SCH ×4 (23:00)
[2018-10-04] VITALS: BP 129/65
[2018-10-04 00:55] LABS: CREATINE KINASE 166 IU/L (39-308); CREATINE KINASE MB FRACTION 3.3 ng/mL (0.5-3.6)
[2018-10-04 04:00] VITALS: BP 135/66
[2018-10-04 05:39] LABS: HEMATOCRIT. 22.9 % (42.0-52.0); HEMOGLOBIN. 7.2 g/dL (14.0-18.0); MEAN CORPUSCULAR VOLUME 73.6 fL (80.0-94.0); MEAN PLATELET VOLUME 7.7 fl (7.4-10.4); PLATELET 112 x1000/uL (130-400); RED BLOOD CELL COUNT 3.12 mill/uL (4.7-6.1); RED CELL DISTRIBUTION WIDTH 21.3 % (11.6-14.6)
[2018-10-04 05:56] LABS: CHLORIDE 111 mEq/L (98-107)
[2018-10-04] MEDS: SODIUM CHLORIDE 0.9% INJ 3ML FLUSH IVF SCH ×3 (06:02→22:00)
[2018-10-04 06:06] LABS: CREATINE KINASE 153 IU/L (39-308)
[2018-10-04] MEDS: SODIUM CHLORIDE 0.45% 1,000 ML IV SCH ×2 (06:15→17:00)
[2018-10-04 08:00] VITALS: BP_SYST 142; BP_SYST 152; BP_DIAS 66; BP_DIAS 89
[2018-10-04 11:59] LABS: PLATELET ESTIMATE SLIGHTLY DECREASED
[2018-10-04 12:00] VITALS: BP 139/58
[2018-10-04 16:00] VITALS: BP 153/62
[2018-10-04 20:00] VITALS: BP 154/67
[2018-10-04 21:47] LABS: HEMOGLOBIN 7.5 g/dL (14.0-18.0)
[2018-10-04 21:58] LABS: TOTAL IRON BINDING CAPACITY 370 ug/dL (250-450)
[2018-10-04 22:30] LABS: FERRITIN 11 ng/mL (22-322)
[2018-10-04 22:33] LABS: FOLIC ACID (FOLATE) SERUM >20 ng/mL ng/mL (>5.38)
[2018-10-04 22:41] LABS: HEPATITIS B SURFACE ANTIGEN NEGATIVE
[2018-10-04 22:44] LABS: VITAMIN B12 SERUM 453 pg/mL (211-911)
[2018-10-04 23:10] LABS: HEPATITIS A AB IGM NEGATIVE (NEGATIVE)
[2018-10-05] VITALS: BP 141/65
[2018-10-05] MEDS: SODIUM CHLORIDE 0.45% 1,000 ML IV SCH (03:00)
[2018-10-05 04:00] VITALS: BP 141/67
[2018-10-05] MEDS: SODIUM CHLORIDE 0.9% INJ 3ML FLUSH IVF SCH (06:54)
[2018-10-05 07:01] LABS: CHLORIDE 104 mEq/L (98-107)
[2018-10-05 07:15] LABS: HEMATOCRIT. 26.1 % (42.0-52.0); MEAN CORPUSCULAR HEMOGLOBIN 22.5 pg (28.0-32.0); MEAN CORPUSCULAR VOLUME 73.5 fL (80.0-94.0); MEAN PLATELET VOLUME 8.4 fl (7.4-10.4); PLATELET 123 x1000/uL (130-400); RED BLOOD CELL COUNT 3.55 mill/uL (4.7-6.1); RED CELL DISTRIBUTION WIDTH 21.5 % (11.6-14.6)
[2018-10-05 08:00] VITALS: BP 135/72
[2018-10-05 09:29] VITALS: BP 135/72
[2018-10-05 09:52] LABS: NUCLEATED RED BLOOD CELLS 2 /100 WBC; PLATELET ESTIMATE SLIGHTLY DECREASED
[2018-10-05] MEDS ORDERED: MVI, ADULT NO.1 10 ML, FOLIC ACID 1 MG, THIAMINE HCL 100 MG in SODIUM CHLORIDE 0.9% 1,0... IV SCH ×4 (23:00)
== END 2018-10-05 10:15 | disposition home or self-care (01) | DRG 244 ==
LOC: ER 15:16 → 6WST 17:27 → EDBEDREQ 17:30 → ENRESERV 18:18
PROVIDERS: ADMIT Internal Medicine; ATTEND Internal Medicine
PROC: 30243N1 Transfusion of Nonautologous Red Blood Cells into Central Vein, Percutaneous Approach (ICD-10-PCS; principal; 2018-10-03)
DX: K57.91 Diverticulosis of intestine, part unspecified, without perforation or abscess with bleeding (principal); E88.09 Other disorders of plasma-protein metabolism, not elsewhere classified; I11.9 Hypertensive heart disease without heart failure; F10.220 Alcohol dependence with intoxication, uncomplicated; D50.9 Iron deficiency anemia, unspecified; D64.9 Anemia, unspecified; E87.6 Hypokalemia; F15.10 Other stimulant abuse, uncomplicated; Y90.8 Blood alcohol level of 240 mg/100 ml or more; Z79.899 Other long term (current) drug therapy
CPT/HCPCS: 36415; 71045; 72070; 73560; 76700; 80305; 80320; 82105; 82140; 82550; 82553; 82607; 82728; 82746; 83540; 83550; 84484; 85014; 85018; 86705; 86709; 86803; 86850; 86900; 86920; 87340; 93005; 96374; 99285; J1885; J3411; J3490; J7030; P9016; G0480